=== PATIENT | male | born 1970 | race Caucasian/White ===

== ENCOUNTER 2025-05-25 14:17 | Emergency (ER) | payer BC ==
[~2025-05-25] VITALS: Ht 185.4 cm; Wt 145.4 kg
[~2025-05-25 14:17] MED LIST: ONDA-243 PO
[2025-05-25 14:24] VITALS: BP 157/77; PULSE 83; RESP 16; TEMP 98.2; O2SAT 99
[2025-05-25] MEDS ORDERED: DEXA6TAB PO (16:32)
--- NOTE | 2025-05-25 16:32 | Physician Documentation ---
History of Present Illness ~ Chief Complaint: Back Pain Stated Complaint: BACK PAIN Time Seen by MD: 16:04 Source: patient Mode of Arrival: EMS Exam Limitations: no limitations HPI 54-year-old male with chief complaint left lower back pain which started when he bent over lifted and twisted a trash bag. He states he is helping his mother move right now and reports the pain dropped him to the floor. he ended up having his called an ambulance and was brought to the emergency room by ambulance due to the pain. He states since arrival his pain is actually quite a bit better. He took three Aleve which seemed to help. No other pre arrival treatment. Pain is localized to lower back no radiating pain into his legs. No urinary retention or bowel or bladder incontinence. No weakness, clumsiness. Medication Reconciliation Allergies: Coded Allergies: No Known Allergies (Unverified , 06/19/15) Scheduled PRN ONDANSETRON ODT 4mg tablet (Ondansetron Odt), 1 TABLET PO Q6H PRN for nausea/vomiting Past Medical History Past Medical History: No Pertinent History, GERD, Anxiety, Depression Past Surgical History: other Alcohol Use: Occasionally Lives In: Home Occupation: employed Review of Systems All Other Systems at this time: Reviewed and Negative Physical Exam Physical Exam Vital Signs: Temperature: 98.2, Source: Temporal, Heart Rate: 83, Respiratory Rate: 16, BP: 157/77, Pulse Oximetry: 99, Weight: 145.450 Physical Exam GENERAL: Alert, no acute distress. HEENT: NCAT, EOMI, PERRL, normal oropharynx, moist oral mucosa. NECK: Supple, trachea midline. CARDIAC: Regular rate and rhythm, no murmurs, rubs, or gallops. Equal distal pulses. No lower extremity edema, cap refill less than 2 seconds. RESPIRATORY: Equal breath sounds, clear to auscultation bilaterally, no respiratory distress. MUSCULOSKELETAL: +TTP OVER LEFT SI JOINT AND LEFT PARASPINAL MUSCLES OF LSPINE. Normal range of motion, nontender, no swelling. Normal gait. NEUROLOGICAL: Awake, alert, and oriented x 3. SKIN: Warm/dry, no pallor, no rash. PSYCH: Alert and appropriate. Affect congruent with mood. Speech is clear. Good eye contact. Progress Results/Orders Results/Orders Orders - ROXANNE CHILDRESS Triamcinolone Acet 40mg/Ml Inj (Kenalog- (05/25/25 16:15) Vital Signs 05/25/25 14:24 Temp 98.2 Pulse 83 Resp 16 B/P (MAP) 157/77 Pulse Ox 99 Medical Decision Making Differential Dx:Considerations: Include: AAA, Aortic dissection, Appendicitis, Bowel obstruction, Cholelithiasis, Cholangitis, DJD, Fracture, Hepatitis, HNP, Musculoskeletal pain, Pancreatitis, Pyelonephritis, Renal infarction, Strain, Urinary obstruction, Urolithiasis, Urinary tract infection Departure Time of Disposition: 16:29 Disposition: 01 HOME / SELF CARE / HOMELESS Impression: Primary Impression: Low back pain Qualified Codes: M54.50 - Low back pain, unspecified Condition: Stable Discharge Instructions: Acute Back Pain, Adult Additional Instructions: IF PAIN UNCONTROLLED OR YOU HAVE ANY NEUROLOGICAL SYMPTOMS (NOT ABLE TO CONTROL BOWELS OR BLADDER, WEAKNESS OF LEG, NUMBNESS) RETURN TO ER. F/U WITH PCP IN 1WEEK. Referrals: NO PRIMARY CARE PROVIDER (PCP) Prescriptions Dexamethasone (Dexamethasone) 6 Mg Tablet 1 TAB PO DAILY for 5 Days, #5 TAB 0 Refills Prov: ROXNANE CHILDRESS 05/25/25 Education Educated: Patient Educated regarding: diagnosis, treatment Signature Scribe Signature: X Attestation: ROXANNE JUAREZ May 25, 2025 16:32
[2025-05-25] MEDS: triamcinolone acetonide 40mg/ml inj IM ONE (16:33)
== END 2025-05-25 16:38 | disposition home or self-care (01) ==
LOC: ER 14:18
DX: M54.50 Low back pain, unspecified (principal); K21.9 Gastro-esophageal reflux disease without esophagitis; F41.9 Anxiety disorder, unspecified; F32.A Depression, unspecified; Z72.89 Other problems related to lifestyle
CPT/HCPCS: 96372; 99283; J3301